=== PATIENT | female | born 2000 | race Caucasian/White ===

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

== ENCOUNTER → 2023-07-07 | Outpatient (CLI) | payer OTHER ==
[2023-07-08 13:45] LABS: Free Thyroxine 1.18 ng/dL (0.70-1.60); Thyroid Stimulating Hormone 4.87 uIU/mL (0.360-4.800)
== END | disposition home or self-care (01) ==
LOC: LAB 12:50 → LAB SHORT 12:50
PROVIDERS: Physician Assistant
DX: F41.0 Panic disorder [episodic paroxysmal anxiety] (principal)
CPT/HCPCS: 84439; 84443